=== PATIENT | male | born 1960 | race Two or more races ===

== ENCOUNTER → 2021-05-10 | Emergency (ER) | payer OTHER ==
[~2021-05-10] VITALS: Ht 165.1 cm; Wt 77.1 kg
[~2021-05-10] MED LIST: HUMULIN R100 UNIT/1; LANTUS SOL100 UNIT/1; LORAZEPAM0.5 MG; ZESTRIL10 M1
== END | disposition home or self-care (01) ==
LOC: ER 20:55
DX: L03.032 Cellulitis of left toe (principal)

== ENCOUNTER 2021-05-31 23:36 | Emergency (ER) | payer OTHER ==
[~2021-05-31] VITALS: Ht 175.3 cm; Wt 85.3 kg
== END 2021-06-01 04:11 | disposition home or self-care (01) ==
LOC: ER 23:36
DX: M54.50 Low back pain, unspecified (principal); Z03.818 Encounter for observation for suspected exposure to other biological agents ruled out; Z79.4 Long term (current) use of insulin; E11.9 Type 2 diabetes mellitus without complications